=== PATIENT | male | born 1985 | race American Indian/Alaskan Native ===

== ENCOUNTER 2019-12-08 05:58 | Emergency (ER) | payer MEDICAID ==
[2019-12-08 06:08] VITALS: BP 152/110
[2019-12-08] MEDS ORDERED: IBUPROFEN 800 MG TAB PO ONE (07:32)
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
== END 2019-12-08 08:32 | disposition home or self-care (01) ==
LOC: ED 05:58
DX: J02.9 Acute pharyngitis, unspecified (principal); J45.909 Unspecified asthma, uncomplicated; F17.200 Nicotine dependence, unspecified, uncomplicated; F12.10 Cannabis abuse, uncomplicated; Z98.890 Other specified postprocedural states; Z79.1 Long term (current) use of non-steroidal anti-inflammatories (NSAID); Z79.2 Long term (current) use of antibiotics
CPT/HCPCS: 87116; 87430